=== PATIENT | female | born 1960 | race Caucasian/White ===

== ENCOUNTER 2016-06-01 15:42 | Emergency (ER) | payer OTHER ==
[~2016-06-01] VITALS: Ht 170.2 cm; Wt 90.9 kg
[2016-06-01 15:50] VITALS: BP 175/94; PULSE 77; RESP 20; O2SAT 99
--- NOTE | 2016-06-01 16:49 | DRSVH ---
PROCEDURE: X-RAY PELVIS W/LAT HIP (LT) ([id number]) INDICATIONS: fall TECHNIQUE: AP pelvis with lateral view(s) of the left hip(s). COMPARISON: None. FINDINGS: Bones: No fractures or dislocations. Pelvic ring appears intact. No suspicious bony lesions. Left hip arthroplasty is present. Soft tissues: The visualized bowel gas pattern is normal. No suspicious soft tissue calcifications. IMPRESSION: Left hip arthroplasty. No visualized acute fracture or dislocation. However, if clinical concern and/or pain persist, short interval imaging followup in 7-10 days is recommended, as occult i njury cannot be definitively excluded. Dictated by: Abby Jason M.D. on 06/01/2016 at 16:48 Approved by: Abby Jason M.D. on 06/01/2016 at 16:48
--- NOTE | 2016-06-01 17:11 | ED.REPORT ---
HPI-Trauma Minor / Fall Date of Service Jun 01, 2016 ED Provider: Ramón Day MD Patient is a 56 year old female who presents to the ED complaining of L hip pain s/p slipping and falling on ice and landing on her lower back at 1430 today. Her pain radiates to her knee. Associated symptoms include dizziness and nausea. She denies hitting her head, LOC, numbness, weakness, incontinence, muscle spasms, or any other symptoms. She reports that her hip has been bothering her for the past 2 mo but is much worse after her fall. She took 600 mg of ibuprofen at the time of incident. Nursing Notes Stated Complaint: FELL ON ICE/HIP PAIN Chief Complaint: Multiple Trauma/Fall Nursing Notes Reviewed: Yes Allergies: Coded Allergies: Sulfa (Sulfonamide Antibiotics) (Verified Allergy, Mild, 06/01/16) Scheduled PRN Cyclobenzaprine (Cyclobenzaprine) 5 Mg Tablet 5 MG PO HS PRN PRN Spasm Ibuprofen (Ibuprofen) 800 Mg Tablet 800 MG PO TID PRN PRN For Pain General Time Seen by MD: 17:03 Chief Complaint Slipped Hx Obtained From: Patient Arrived By: Walk-in Onset Occurred: 1 - 4 hours ago Symptom Duration: Since onset Past Medical History Past Medical History Denies Past Surgical History L hip replacement Reports: Cholecystectomy Smoking History Unknown if Ever Smoker Social History Alcohol Use: Denies alcohol use Other Social History: Good social support, Review of Systems Musculoskeletal: Reports: Joint pain (L hip and L knee ) Neurologic: Reports: Dizziness, Denies: Change LOC, Headache, Numbness, Weakness Complete sys rev & neg: except as marked. GI: Reports: Nausea Physical Exam Initial Vital Signs Vital Signs (First) Date Time Temp Pulse Resp B/P Pulse Ox O2 Delivery O2 Flow Rate FiO2 06/01/16 15:50 36.9 77 20 175/94 99 Room Air Initial VS: Reviewed Head / Eyes: Atraumatic, Normocephalic Respiratory: No respiratory distress Skin: Warm, Dry Neurologic: Alert, Oriented, Nonfocal Psychiatric: Mood/affect normal, Behavior normal, Normal thought content General/Constitutional: Awake, Alert, Well appearing, Well developed Neck: Supple, Full range of motion Back: Atraumatic, Non-tender Lower Extremity / Pelvis / MS: Full range of motion Left Hip: Positive: Tenderness present..., Negative: Leg externally rotated, Leg shortened, Warmth present Interpretation & Diagnostics X-Ray Interpretation Xray Interpretation: IMPRESSION: Left hip arthroplasty. No visualized acute fracture or dislocation. However, if clinical concern and/or pain persist, short interval imaging followup in 7-10 days is recommended, as occult injury cannot be definitively excluded. Dictated by: Abby Jason M.D. on 06/01/2016 at 16:48 Approved by: Abby Jason M.D. on 06/01/2016 at 16:48 X-Ray Ordered: Pelvis, Hip left Interpretation / Wet Read by: Interpret - Radiologist Re-Eval/Medical Decision Med Decision/Clinical Course 56-year-old female history of left hip arthroplasty 2 years ago presenting status post ground level fall onto low back earlier today. Reporting pain left hip. No red flag symptoms low back pain. Left hip full range of motion. X-ray no evidence of fracture dislocation. No low back tenderness. Patient was given Tylenol recommended to follow up with primary doctor with return precautions. Given prescription for ibuprofen to use as needed and muscle relaxer to use as needed. Return precautions given. Re-Evaluation/Progress : Time of Eval: 17:21 Re-Evaluation/Progress Note: Discussed plan for pain management and discharge. Patient understands and agrees with plan. All questions addressed at this time. Counseled Regarding: Diagnosis, Lab results, Need for follow-up, When/why to return to ED Discharge & Departure Impression: Primary Impression: Hip pain, left Additional Impression: Fall Encounter type: initial encounter Qualified Code: W19.XXXA - Unspecified fall, initial encounter Disposition: Home Discharge Condition All VS Reviewed: Yes Condition: Stable Additional Instructions: Thank you for entrusting us with your care. Your x-ray is reassuring and I do not appreciate a fracture. Take Ibuprofen and Tylenol as needed for pain management. Follow up with your primary care provider. Return to the emergency department if you have any new or worsening symptoms. Referrals: Christie Wright PA-C (PCP) Scribe Attestation Portions of this note were transcribed by Carmel Pryor. I, Dr. Day personally performed the history, physical exam and medical decision-making; I reviewed and confirmed the accuracy of the information in the transcribed note. Signed by: Carmel Pryor 06/01/16, [id number] copies to: Christie Wright PA-C, Ben M MD Jun 01, 2016 17:11 CARMEL PRYOR Jun 01, 2016 17:27
[2016-06-01] MEDS ORDERED: CYCL5TAB PO (17:28)
[2016-06-01] MEDS ORDERED: IBUP800T28 PO (17:28)
[2016-06-01 18:00] VITALS: BP 160/90; PULSE 62; RESP 16; O2SAT 95
== END 2016-06-01 18:04 | disposition home or self-care (01) ==
LOC: SED 15:42
DX: M25.552 Pain in left hip (principal); W00.0XXA Fall on same level due to ice and snow, initial encounter; Y93.01 Activity, walking, marching and hiking; Y99.8 Other external cause status; Y92.89 Other specified places as the place of occurrence of the external cause; Z96.642 Presence of left artificial hip joint; Z88.2 Allergy status to sulfonamides